=== PATIENT | female | born 1935 ===

== ENCOUNTER → 2017-11-12 | Day surgery (SDC) | payer OTHER, MEDICARE ==
[~2017-11-12] VITALS: Ht 152.4 cm; Wt 59.0 kg
--- NOTE | 2017-11-12 11:43 | Operative Report ---
Operative/Inv Procedure Report Surgery Date: 11/12/17 Name of Procedure: Exam under anesthesia Botox denervation of levator ani and anal sphincter complex Pre-Operative Diagnosis: Rectal pain Levator syndrome Post-Operative Diagnosis: Same Estimated Blood Loss: scant Surgeon/Production Floater: Eliazar Vidal Jr., DO Anesthesia: local monitored anesthesi, block Monitors: Per routine Specimens: None Complications: None Condition: Good Operative Indication: This is an 81-year-old female with severe chronic rectal pain. 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 She presents for Botox injection to her levator ani muscle today Operative/Procedure Note Note: Patient was taken to the operating room. She is placed in supine position. She underwent IV sedation. Once patient was comfortable she was converted to lithotomy position in [facility]. The perineum was prepped and draped in usual fashion. Next an anal block was performed using 0.5% Marcaine with epinephrine. A total of 30 cc was injected. After this gentle digital exam was performed in the anal canal was gently dilated manually. A Fansler operating proctoscope was placed in the anal canal. The anal canal was inspected pot quadrant by quadrant there was no visible pathology. The proctoscope was then aligned with the posterior anal canal. Using palpation the levator muscle was identified. 100 units of Botox was mixed with 10 cc of normal saline. 2 cc was injected into the posterior midline of the muscle. 3 cc was injected in the right posterior aspect of the anal canal into the belly of the levator ani and then another 3 cc was injected into the left posterior aspect of the anal canal once again into the belly of the levator ani. At this point the procedure was concluded. I inspected for bleeding there was none. The retractor was removed the perineum was cleansed and dried. A bulky dressing was placed over the anus. The patient was converted to supine. She tolerated the procedure well. She was taken to recovery area in good condition. At the end of this operation all needle sponges and instruments were accounted for. Findings: No visible pathology in the anal canal and lower rectum Discharge Disposition: PACU
== END ==
LOC: STS 04:14
DX: K62.89 Other specified diseases of anus and rectum (principal); K59.4 Anal spasm; R19.8 Other specified symptoms and signs involving the digestive system and abdomen; K58.9 Irritable bowel syndrome, unspecified; K57.90 Diverticulosis of intestine, part unspecified, without perforation or abscess without bleeding; D64.9 Anemia, unspecified; K21.9 Gastro-esophageal reflux disease without esophagitis; Z87.891 Personal history of nicotine dependence
CPT/HCPCS: J0585; J2250